=== PATIENT | female | born 2000 | race Caucasian/White ===

== ENCOUNTER 2023-01-28 17:13 | Emergency (ER) | payer MEDICAID ==
[~2023-01-28] VITALS: Ht 167.6 cm; Wt 92.1 kg
--- NOTE | 2023-01-28 17:35 | NUR ---
Patient to ER bed 08 to gown for evaluation. Side rails up.
--- NOTE | 2023-01-28 17:45 | NUR ---
Pt brought by family, A&Ox4, pt presents to ER with R labia/vaginal pain, states she feels a lump, denies discharge, skin pink and warm, cap refill <3, VSS, respirations even and unlabored.
[2023-01-28 17:47] VITALS: BP_SYST 112
--- NOTE | 2023-01-28 17:52 | NUR ---
Samuel lamar in [facility] - 01/28/23 at [email or web address] Werner evaluating patient at bedside
--- NOTE | 2023-01-28 17:52 | NUR ---
Dr Werner evaluating patient with myself as Shaperon, procedure well tolerated
[2023-01-28 18:35] LABS: BILIRUBIN,URINE NEGATIVE (NEGATIVE); BLOOD, URINE NEGATIVE (NEGATIVE); COLOR,URINE YELLOW (YELLOW); GLUCOSE,URINE NEGATIVE (NEGATIVE); KETONES,URINE NEGATIVE (NEGATIVE); LEUKOCYTE ESTERASE ,URINE NEGATIVE (NEGATIVE); NITRITE, URINE NEGATIVE (NEGATIVE); PH,URINE 5.5 (5.0-8.0); PROTEIN URINE NEGATIVE (NEGATIVE); UROBILINOGEN,URINE 0.2 (0.2-1.0)
[2023-01-28 18:37] LABS: CLARITY/URINE CLEAR (CLEAR)
[2023-01-28] MEDS ORDERED: IBUP-1969 PO (19:35)
[2023-01-28] MEDS ORDERED: CEPH-548 PO (19:35)
--- NOTE | 2023-01-28 20:00 | NUR ---
report received from emanuel farley for continuity of care. patient stable.
--- NOTE | 2023-01-28 20:01 | NUR ---
Patient given written and verbal discharge instructions and verbalizes understanding. ER MD discussed with patient the results and treatment provided. Patient in stable condition. ID arm band removed. IV catheter removed intact and dressing applied, no active bleeding. Rx of meds given. Patient educated on pain management and to follow up with PMD. Pain Scale . Opportunity for questions provided and answered. Medication side effect fact sheet provided.
== END 2023-01-28 20:00 | disposition home or self-care (01) ==
LOC: SED 17:13
DX: N75.0 Cyst of Bartholin's gland (principal); R19.00 Intra-abdominal and pelvic swelling, mass and lump, unspecified site; Z79.899 Other long term (current) drug therapy
CPT/HCPCS: 76856-TC; 81003; 81025; 99284